=== PATIENT | female | born 1975 | race African-American/Black ===

== ENCOUNTER 2023-05-22 10:25 | Outpatient (AMB) | payer OTHER, SELFPAY ==
--- NOTE | 2023-05-22 10:26 | MHC.PC.OV ---
Vital Signs 05/22/23 10:28 Height 5 ft 4.96 in Weight 155 lb BMI 25.8 BP 114/62 Blood Pressure Location Lt brachial Position Sitting Pulse 77 Pulse Source Pulse Oximeter Pulse Oximetry (%) 100 Oxygen Delivery Method Room Air Intake Visit Reasons: NPV/ requesting phy Allergies No Known Allergies Allergy (Verified 05/22/23 10:42) Medication List - Last Reconciled 05/22/23 by CHARLOTTE Hernandes No Known Home Meds Dental Screening Dental Screen Date: 05/22/23 Did you have a dental visit in the last 12 months?: Yes Did you have a dental problem in the last 6 months where you did not have access to dental care?: No Was dental information given to patient?: Patient has dentist HPI HPI Comments History of Present Illness Details 48 year female new patient presents today for physical exam. Past medical history significant for migraine and hypercholesteremia. Patient signed release to obtain records from previous pcp. Denies chest pain, palpitations, shortness of breath or syncope. Pap smear: December 2022 Eye exam: Recommended. Colonoscopy: January 2023, patient reports it was normal, recommend 10 year follow-up Mammogram: January 2023, patient reports history of dense breast tissue states she needed additional imaging breast ultrasound on previous mammogram and everything came back negative. [facility] Medical History (Updated 05/22/23 @ 10:44 by CHARLOTTE Hernandes) Migraines Surgical History (Updated 05/22/23 @ 10:32 by RENE Hester) History of dilatation and curettage Family History (Updated 05/22/23 @ 10:45 by CHARLOTTE Hernandes) Mother Migraines Father No problems noted. Maternal Grandmother Breast cancer Social History (Updated 05/22/23 @ 10:45 by CHARLOTTE Hernandes) Housing: House Alcohol intake: never Patient Tobacco Use Status: Never used Tobacco e-Cigarette/Vaping Use: Never Used Current occupational status: employed Cognitive needs: No Hearing needs: No Vision needs: No Questionnaire PHQ-9 Over the last 2 weeks, how often have you been bothered by any of the following problems? 1. Little interest or pleasure in doing things: not at all 2. Feeling down, depressed, or hopeless: not at all 3. Trouble falling or staying asleep, or sleeping too much: not at all 4. Feeling tired or having little energy: not at all 5. Poor appetite or overeating: not at all 6. Feeling bad about yourself - or that you are a failure or have let yourself or your family down: not at all 7. Trouble concentrating on things, such as reading the newspaper or watching television: not at all 8. Moving or speaking so slowly that other people could have noticed. Or the opposite - being so fidgety or restless that you have been moving around a lot more than usual: not at all 9. Thoughts that you would be better off or of hurting yourself in some way: not at all Total score: 0 Depression Screening Interpretation: Negative 51618 - PHQ-9 Billing: Yes Source: Developed by Drs. Rachid Howell, Dionna Delgadillo, Ean Johnson and colleagues, with an educational shruthi from [employer]. Thrive Questionnaire I am a: Patient What is your living situation today?: I have a steady place to live Within the past 12 months, did the food you bought not last and you didn't have the money to get more?: Never true Within the past 12 months, did you worry whether your food would run out before you got money to buy more?: Never true Do you have trouble paying for medicines?: No Do you have trouble getting transportation to medical appointments?: No Do you have trouble paying your heating and electricity bill?: No Do you have trouble taking care of your child, family member or friend?: No Do you have trouble with day-to-day activities such as bathing, preparing meals, shopping, managing finances, etc.?: No Are you currently unemployed and looking for a job?: No Are you interested in more education?: No Please select the resources that you would like help with: None AUDIT C Alcohol Use Questionnaire (AUDIT-C) 1. How often do you have a drink containing alcohol?: Never Total Score: 0 YADIEL-7 AMB Questionnaire YADIEL-7 Feeling nervous, anxious, or on edge: 0 = Not at all Not being able to stop or control worryin = Not at all Worrying too much about different things: 0 = Not at all Trouble relaxin = Not at all Being so restless that it is hard to sit still: 0 = Not at all Becoming easily annoyed or irritable: 0 = Not at all Feeling afraid as if something awful might happen: 0 = Not at all Total YADIEL-7 score (0-4 normal; 5-9 mild; 10-14 moderate; 15-21 severe): 0 Source: Developed by Drs. Rachid Howell, Dionna Delgadillo, Ean Johnson and colleagues, with an educational shruthi from [employer]. YADIEL-7 Assessment Billing YADIEL-7 Assessment Tool: YADIEL-7 Assessment 47000 Physical exam (Primary Care) Vital Signs: Last Vital Signs Pulse 77 05/22/23 10:28 BP 114/62 05/22/23 10:28 Pulse Ox 100 05/22/23 10:28 Oxygen Delivery Method Room Air 05/22/23 10:28 BMI result Body Mass Index 25.8 Tobacco/Smoking Status: Tobacco use Status Patient Tobacco Use Status Never used Tobacco 05/22/23 10:45 e-Cigarette/Vaping Use Never Used 05/22/23 10:45 PHQ-9: PHQ-9 Score PHQ-9: Total score 0 05/22/23 10:39 Depression Screening Interpretation: Negative Assessment and Plan Assessment & Plan (1) Hypercholesteremia: Code(s): E78.00 - Pure hypercholesterolemia, unspecified Plan: Fasting lipid panel ordered. (2) Physical exam, annual: Code(s): Z00.00 - Encounter for general adult medical examination without abnormal findings Plan: Follow-up in 1 year or sooner if needed. Orders: Orders TSH reflex Free T4 Today Z13.29 - Encounter for screening for other suspected endocrine disorder Complete Blood Count Auto Diff Today Z13.0 - Encounter for screening for diseases of the blood and blood-forming organs and certain disorders involving the immune mechanism Comprehensive [place]. Panel Fast Today E78.00 - Pure hypercholesterolemia, unspecified Lipid Panel Today Z13.220 - Encounter for screening for lipoid disorders Vitamin D 25-OH Total Today Z13.21 - Encounter for screening for nutritional disorder Coding Level of Care Code New Pt Prev Care 40-64y(57591) Diagnoses Hypercholesteremia E78.00 Physical exam, annual Z00.00 Additional Codes YADIEL-7 Assessment Billing - YADIEL-7 Assessment Tool: YADIEL-7 Assessment 40630 ([id number])
[2023-05-22 10:28] VITALS: BP 114/62; PULSE 77; O2SAT 100; BMI 25.8
== END 2023-05-22 10:58 | disposition home or self-care (01) ==
PROVIDERS: PCP Internal Medicine; Visit Provider Nurse Practitioner Family
DX: E78.00 Pure hypercholesterolemia, unspecified (principal); Z00.00 Encounter for general adult medical examination without abnormal findings
CPT/HCPCS: 99386

== ENCOUNTER 2023-05-24 09:55 | Outpatient (REF) | payer OTHER, SELFPAY ==
[2023-05-24 10:11] LABS: MANUAL DIFF FLAG NO
[2023-05-24 10:19] LABS: Basophils Percent Auto 0.7 % (0-2); Eosinophils Absolute Auto 0.1 X10*3/uL (0.0-0.4); Eosinophils Percent Auto 1.2 % (0-4); Hemoglobin 14.1 g/dl (12.0-16.0); Imm Gran Abs Auto 0.02 X10*3/uL (0.00-0.03); Imm Gran Pct Auto 0.3 % (0.0-0.4); Lymphocytes Absolute Auto 1.4 X10*3/uL (1.2-4.9); Lymphocytes Percent Auto 24.3 % (20-40); Mean Corpuscular HGB Conc 33.6 g/dl (31.0-35.0); Mean Corpuscular Hemoglobin 29.4 pg (27.0-33.0); Mean Corpuscular Volume 87.5 fL (80.0-98.0); Mean Platelet Volume 12.3 fL (9.4-12.3); Monocytes Absolute Auto 0.4 X10*3/uL (0.1-1.2); Neutrophils Absolute Auto 3.9 x10*3/uL (2.0-8.3); Neutrophils Percent Auto 66.5 % (45-73); Platelet Count 152 X10*3/uL (160-400); Red Cell Distribution Width 12.8 % (11.0-16.0); White Blood Count 5.9 X10*3/uL (4.8-10.8)
[2023-05-24 10:56] LABS: Alanine Aminotransferase 7 U/L (0-31); Albumin Level 4.1 g/dL (3.5-5.0); Alkaline Phosphatase 44 U/L (39-117); Anion Gap 10 (12-20); Aspartate Amino Transferase 14 U/L (5-31); Bilirubin Total 0.4 mg/dL (0.0-1.0); Blood Urea Nitrogen 10 mg/dL (9-16); Calcium 9.2 mg/dL (8.4-10.2); Carbon Dioxide 26 mmol/L (22-29); Chloride 106 mmol/L (96-108); Cholesterol 263 mg/dL (<200); Estimated Glomerular Filt Rate > 60; Glucose Fasting 104 mg/dL (60-99); HDL Cholesterol 53 mg/dL (>40); LDL Cholesterol Calculated 199 mg/dL (<100); Potassium 4.2 mmol/L (3.3-5.1); Sodium 138 mmol/L (135-145); Total Protein 6.5 g/dL (6.5-8.0); Triglycerides 59 mg/dL (<150)
[2023-05-24 11:15] LABS: TSH reflex Free T4 1.19 uIU/mL (0.32-4.0); Vitamin D 25-OH Total 55.3 ng/mL (>30)
== END 2023-05-24 09:56 | disposition home or self-care (01) ==
LOC: HO.LAB 09:55
PROVIDERS: PCP Nurse Practitioner Family; Visit Provider Nurse Practitioner Family
DX: Z13.21 Encounter for screening for nutritional disorder (principal); Z13.0 Encounter for screening for diseases of the blood and blood-forming organs and certain disorders involving the immune mechanism; Z13.220 Encounter for screening for lipoid disorders; Z13.29 Encounter for screening for other suspected endocrine disorder; E78.00 Pure hypercholesterolemia, unspecified; I10 Essential (primary) hypertension
CPT/HCPCS: 36415; 80053; 80061; 82306; 84443; 85025

== ENCOUNTER 2023-05-31 09:19 | Outpatient (REF) | payer OTHER, SELFPAY ==
[2023-05-31 10:58] LABS: Estimated Average Glucose 100 mg/dL; Hemoglobin A1c % 5.1 % (<6.0)
[2023-05-31 11:06] LABS: Alanine Aminotransferase 9 U/L (0-31); Alkaline Phosphatase 37 U/L (39-117); Anion Gap 9 (12-20); Aspartate Amino Transferase 13 U/L (5-31); Bilirubin Total 0.5 mg/dL (0.0-1.0); Blood Urea Nitrogen 10 mg/dL (9-16); Calcium 8.6 mg/dL (8.4-10.2); Carbon Dioxide 27 mmol/L (22-29); Chloride 105 mmol/L (96-108); Estimated Glomerular Filt Rate > 60; Glucose Fasting 96 mg/dL (60-99); Potassium 3.7 mmol/L (3.3-5.1); Sodium 137 mmol/L (135-145); Total Protein 6.2 g/dL (6.5-8.0)
== END 2023-05-31 09:20 | disposition home or self-care (01) ==
LOC: HO.LAB 09:19
PROVIDERS: PCP Nurse Practitioner Family; Visit Provider Nurse Practitioner Family
DX: R73.01 Impaired fasting glucose (principal)
CPT/HCPCS: 36415; 80053; 83036

== ENCOUNTER 2023-08-24 10:19 | Outpatient (REF) | payer OTHER, SELFPAY ==
[2023-08-24 12:24] LABS: Cholesterol 265 mg/dL (<200); HDL Cholesterol 65 mg/dL (>40); LDL Cholesterol Calculated 188 mg/dL (<100); Triglycerides 60 mg/dL (<150)
== END 2023-08-24 10:20 | disposition home or self-care (01) ==
LOC: HO.LAB 10:19
PROVIDERS: PCP Nurse Practitioner Family; Visit Provider Nurse Practitioner Family
DX: E78.00 Pure hypercholesterolemia, unspecified (principal)
CPT/HCPCS: 36415; 80061

== ENCOUNTER 2024-05-10 08:28 | Outpatient (REF) | payer OTHER, SELFPAY ==
--- NOTE | ~2024-05-10 | MM_ITS ---
EXAMINATION: MM SCREENING DIGITAL BREAST TOMOSYNTHESIS, BILATERAL CLINICAL INFORMATION: Screening. Asymptomatic. COMPARISON: Mammography: Baseline. TECHNIQUE: Digital breast mammography with tomosynthesis is performed in both the craniocaudal and mediolateral oblique views along with computer-aided detection (CAD). FINDINGS: There are scattered areas of fibroglandular density (ACR BI-RADS breast composition Category b). There are no significant masses, abnormal calcifications, or other abnormalities. MM/MM tomosynthesis screening BI IMPRESSION: No mammographic evidence of malignancy. ASSESSMENT: BI-RADS BI-RADS 1 - Negative RECOMMENDATION: Routine annual mammography screening. 1 year F/U This examination should not preclude the clinical evaluation of a suspicious palpable abnormality. This patient's information was entered into a reminder system with a target due date for their next mammogram. Electronically signed by: Ирина Gardner DO 06/05/2024 09:47 AM EDT
== END 2024-05-10 08:29 | disposition home or self-care (01) ==
LOC: HO.MAMMO 08:28
PROVIDERS: Visit Provider Obstetrics & Gynecology
DX: Z12.31 Encounter for screening mammogram for malignant neoplasm of breast (principal)
CPT/HCPCS: 77063; 77067

== ENCOUNTER → 2024-05-10 08:30 | Outpatient (BNV) | payer OTHER, SELFPAY | PROVIDERS: Visit Provider Internal Medicine | DX: Z12.31 Encounter for screening mammogram for malignant neoplasm of breast (principal) | CPT/HCPCS: 77063; 77067 ==

== ENCOUNTER 2024-05-24 08:34 | Outpatient (REF) | payer OTHER, SELFPAY ==
[2024-05-24 09:45] LABS: MANUAL DIFF FLAG NO
[2024-05-24 10:22] LABS: Basophils Percent Auto 0.9 % (0-2); Eosinophils Absolute Auto 0.1 X10*3/uL (0.0-0.4); Eosinophils Percent Auto 2.5 % (0-4); Hematocrit 39.5 % (37.0-47.0); Hemoglobin 13.2 g/dl (12.0-16.0); Imm Gran Abs Auto 0.04 X10*3/uL (0.00-0.03); Imm Gran Pct Auto 0.9 % (0.0-0.4); Lymphocytes Absolute Auto 1.2 X10*3/uL (1.2-4.9); Lymphocytes Percent Auto 26.3 % (20-40); Mean Corpuscular HGB Conc 33.4 g/dl (31.0-35.0); Mean Corpuscular Hemoglobin 29.9 pg (27.0-33.0); Mean Corpuscular Volume 89.4 fL (80.0-98.0); Mean Platelet Volume 12.2 fL (9.4-12.3); Monocytes Absolute Auto 0.4 X10*3/uL (0.1-1.2); Monocytes Percent Auto 8.3 % (2-11); Neutrophils Absolute Auto 2.7 x10*3/uL (2.0-8.3); Neutrophils Percent Auto 61.1 % (45-73); Platelet Count 137 X10*3/uL (160-400); Red Blood Count 4.42 X10*6/uL (4.20-5.50); White Blood Count 4.5 X10*3/uL (4.8-10.8)
[2024-05-24 10:45] LABS: Appearance Urine Clear; Color Urine Yellow; Glucose Urine UA Negative (Negative); Leukocyte Esterase Urine Negative (Negative); Nitrite Urine Negative (Negative); PH 5.5 (5.0-9.0); Urine Blood Negative (Negative); Urine Ketones Negative (Negative); Urine Protein Negative (Neg-Trace)
[2024-05-24 11:34] LABS: Alanine Aminotransferase 10 U/L (0-31); Albumin Level 4.1 g/dL (3.5-5.0); Alkaline Phosphatase 35 U/L (39-117); Anion Gap 9 (12-20); Aspartate Amino Transferase 12 U/L (5-31); Bilirubin Total 0.3 mg/dL (0.0-1.0); Blood Urea Nitrogen 12 mg/dL (9-16); Calcium 8.8 mg/dL (8.4-10.2); Carbon Dioxide 22 mmol/L (22-29); Chloride 111 mmol/L (96-108); Cholesterol 259 mg/dL (<200); Estimated Glomerular Filt Rate > 60; Glucose Random 90 mg/dL (60-115); HDL Cholesterol 67 mg/dL (>40); LDL Cholesterol Calculated 184 mg/dL (<100); Potassium 4.1 mmol/L (3.3-5.1); Sodium 138 mmol/L (135-145); Total Protein 6.3 g/dL (6.5-8.0); Triglycerides 44 mg/dL (<150)
[2024-05-24 11:44] LABS: Folate 8.9 ng/mL (> or = 4.0); Vitamin B12 488 pg/mL (200-900)
[2024-05-24 11:50] LABS: Free T4 (Free Thyroxine) 0.83 ng/dL (0.71-1.85); TSH reflex Free T4 1.81 uIU/mL (0.32-4.0)
[2024-05-28 18:48] LABS: Vitamin D 25-OH, D2 <4 ng/mL; Vitamin D 25-OH, D3 36 ng/mL; Vitamin D 25-OH, Total 36 ng/mL (30-100)
== END 2024-05-24 08:35 | disposition home or self-care (01) ==
LOC: HO.LAB 08:34
DX: Z00.00 Encounter for general adult medical examination without abnormal findings (principal); R73.01 Impaired fasting glucose; E78.00 Pure hypercholesterolemia, unspecified; G43.909 Migraine, unspecified, not intractable, without status migrainosus; R35.89 Other polyuria; Z13.220 Encounter for screening for lipoid disorders
CPT/HCPCS: 36415; 80053; 80061; 81003; 82306; 82607; 82746; 84439; 84443; 85025; 96127; 99396

== ENCOUNTER 2024-05-24 08:34 | Outpatient (AMB) | payer OTHER, SELFPAY ==
[2024-05-24 08:36] VITALS: BP 106/60; PULSE 69; O2SAT 99; BMI 23.7
--- NOTE | 2024-05-24 08:36 | MHC.PC.OV ---
Vital Signs 05/24/24 08:36 Height 5 ft 4.96 in Weight 142 lb BMI 23.7 BP 106/60 Blood Pressure Location Lt brachial Position Sitting Pulse 69 Pulse Source Pulse Oximeter Pulse Oximetry (%) 99 Oxygen Delivery Method Room Air Intake Visit Reasons: annual exam/ [facility] Orthopedic Radiologic Technologist Required: No Allergies No Known Allergies Allergy (Verified 05/24/24 08:39) Medication List - Last Reconciled 05/24/24 by Francesca Conroy PA-C No Known Home Meds Tobacco use date assessed: 05/24/24 Dental Screening Dental Screen Date: 05/24/24 Did you have a dental visit in the last 12 months?: Yes Did you have a dental problem in the last 6 months where you did not have access to dental care?: No Was dental information given to patient?: Patient has dentist HPI annual exam/ breanna Caitlyn HPI Details 49-year-old female with past medical history migraines and hypercholesterolemia last seen by nurse practitioner coming in for annual exam.? Patient recently completed mammogram 05/10/2024 and currently awaiting read. Patient states she is feeling generally well however still having migraines. She was previously evaluated by Neurology who started her on sumatriptan 100 mg but she never ended up using. She has been doing low carb diet as well as other lifestyle changes and has seen good improvement in her migraines. She has a migraine twice monthly and typically associated with hormonal changes throughout the month. She follows with [facility] yearly and colonoscopy was completed 2 years ago in up-to-date. She also regularly follows with gynecology for Pap smears. [facility] Medical History (Updated 05/24/24 @ 09:59 by Francesca Conroy PA-C) Migraines Surgical History History of dilatation and curettage Family History Mother Migraines Father No problems noted. Maternal Grandmother Breast cancer Social History Housing: House Alcohol intake: never Patient Tobacco Use Status: Never used Tobacco e-Cigarette/Vaping Use: Never Used Current occupational status: employed Cognitive needs: No Hearing needs: No Vision needs: No Questionnaire PHQ-9 Over the last 2 weeks, how often have you been bothered by any of the following problems? 1. Little interest or pleasure in doing things: not at all 2. Feeling down, depressed, or hopeless: not at all 3. Trouble falling or staying asleep, or sleeping too much: several days 4. Feeling tired or having little energy: not at all 5. Poor appetite or overeating: not at all 6. Feeling bad about yourself - or that you are a failure or have let yourself or your family down: not at all 7. Trouble concentrating on things, such as reading the newspaper or watching television: not at all 8. Moving or speaking so slowly that other people could have noticed. Or the opposite - being so fidgety or restless that you have been moving around a lot more than usual: not at all 9. Thoughts that you would be better off or of hurting yourself in some way: not at all Total score: 1 Depression Screening Interpretation: Negative Depression Screening Done: Yes 80487 - PHQ-9 Billing: Yes Source: Developed by Drs. Rachid Howell, Dionna Delgadillo, Ean Johnson and colleagues, with an educational shruthi from [employer]. Thrive Questionnaire Date Thrive assessed: 05/17/24 I am a: Patient What is your living situation today?: I have a steady place to live Within the past 12 months, did the food you bought not last and you didn't have the money to get more?: Never true Within the past 12 months, did you worry whether your food would run out before you got money to buy more?: Never true Do you have trouble paying for medicines?: No Do you have trouble getting transportation to medical appointments?: No Do you have trouble paying your heating and electricity bill?: No Do you have trouble taking care of your child, family member or friend?: No Do you have trouble with day-to-day activities such as bathing, preparing meals, shopping, managing finances, etc.?: No Are you currently unemployed and looking for a job?: No Are you interested in more education?: No Please select the resources that you would like help with: None Currently or been in a relationship where the following occur: No concerns reported THRIVE Score: 0 AUDIT C Alcohol Use Questionnaire (AUDIT-C) 1. How often do you have a drink containing alcohol?: Monthly or less 2. How many drinks containing alcohol do you have on a typical day when you are drinking?: 1 or 2 3. How often do you have six or more drinks on one occasion?: Never Total Score: 1 YADIEL-7 AMB Questionnaire YADIEL-7 Date YADIEL - 7 assessed: 05/24/24 Feeling nervous, anxious, or on edge: 1 = Several days Not being able to stop or control worryin = Not at all Worrying too much about different things: 0 = Not at all Trouble relaxin = Not at all Being so restless that it is hard to sit still: 0 = Not at all Becoming easily annoyed or irritable: 0 = Not at all Feeling afraid as if something awful might happen: 0 = Not at all Total YADIEL-7 score (0-4 normal; 5-9 mild; 10-14 moderate; 15-21 severe): 1 Source: Developed by Drs. Rachid Howell, Dionna Delgadillo, Ean Johnson and colleagues, with an educational shruthi from [employer]. YADIEL-7 Assessment Billing YADIEL-7 Assessment Tool: YADIEL-7 Assessment 95203 Review of Systems Const Denies body aches, Denies fatigue, Denies fever(s), Denies frequent falls, Reports headache(s) and Denies weakness Eyes Reports no additional complaints and Denies change in vision ENT Denies dysphagia, Denies dizziness, Denies facial pain, Reports headache(s), Denies nasal congestion and Denies odynophagia Card Denies chest pain, Denies syncope, Denies irregular heart rhythm, Denies leg edema, Denies lightheadedness and Denies dyspnea Resp Denies cough and Denies dyspnea GI Denies constipation, Denies dysphagia, Denies dyspepsia, Denies diarrhea, Reports nausea (w/ migraine), Denies odynophagia and Reports vomiting (w/ migraines) Denies urinary frequency, Denies dysuria, Denies urinary hesitancy and Denies urinary urgency Musc Denies back pain and Denies myalgias Skin/Breast Reports system reviewed and no additional complaints, except as documented Neuro Denies dizziness, Denies syncope, Denies frequent falls, Reports headache(s) and Denies weakness Psych Reports no additional complaints Endo Denies fatigue Physical exam (Primary Care) Vital Signs: Oxygen Delivery Method Room Air 05/24/24 08:36 BMI result Body Mass Index 23.7 Tobacco/Smoking Status: Tobacco use Status Patient Tobacco Use Status Never used Tobacco 04/24/24 11:14 e-Cigarette/Vaping Use Never Used 04/24/24 11:14 Depression Screening Interpretation: Negative Thrive Assessment: Date of Thrive Assessment Date Thrive assessed 05/17/24 05/17/24 11:49 Currently or been in a relationship where the following occur: No concerns reported Const General: cooperative, healthy appearing, comfortable and no acute distress Orientation/consciousness: patient oriented x3 HENMT Head: Yes normocephalic Ears: hearing grossly normal bilaterally, external ears normal, TM's normal bilaterally and EAC's normal General nose exam: Normal external nose present Face and sinus: Yes normal facial exam and Yes sinuses nontender Mouth: Normal oral and palatal mucosa present and tongue normal Throat: Yes posterior oropharynx normal Eyes General: appearance normal, both eyes and all related structures Conjunctivae: conjunctivae normal Pupils: Equal, round and reactive pupils present EOM: EOMs intact bilaterally and No Nystagmus present Neck Neck: Yes normal visual inspection, Yes full ROM and Yes no lymphadenopathy Chest Chest palpation & inspection: normal inspection of the chest Resp Effort & Inspection: normal respiratory effort Auscultation: clear to auscultation bilaterally, no crackles, no rales, no rhonchi, no wheezes and breath sounds present Cardio Rate: regular rate Rhythm: regular rhythm Peripheral pulses: radial pulses present and dorsalis pedis present GI Inspection: Yes normal to inspection and No Abdominal wall edema Palpation (GI): Soft to palpation, not firm and nontender Auscultation: normal bowel sounds Rectal Exam - Female: deferred General: Yes no CVA tenderness Back/Spine/Pelvis Back: no CVA tenderness Skin General skin exam: no rashes or lesions noted Neuro General: patient oriented x3 Cranial nerves: Yes Equal, round and reactive pupils present, Yes Midline tongue present, Yes Ability to bilaterally elevate shoulders present and No Nystagmus present Gait exam (Neuro): Normal gait present Extrem General: Yes normal to inspection, Yes full ROM, No no pedal edema and No edema Psych Speech and movement: Normal speech and movement present Affect: normal affect Insight: Good insight present (Psych) Judgement: Good judgement present (Psych) Assessment and Plan Assessment & Plan (1) Elevated fasting glucose: Code(s): R73.01 - Impaired fasting glucose Plan: Updated blood work ordered. Decrease the amount of carbohydrates such as pasta, bread, rice, and potatoes and limit the amount of sweets. Although fruits are generally healthy they should be eaten in moderation as they are still high in sugar. (2) Hypercholesteremia: Code(s): E78.00 - Pure hypercholesterolemia, unspecified Plan: Cholesterol was mildly elevated on last lab work. Patient has been following a low carb diet and we will redraw labs. Avoid foods that are high in cholesterol such as red meat, fried foods, eggs and baked goods. (3) Migraines: Code(s): G43.909 - Migraine, unspecified, not intractable, without status migrainosus Plan: Patient was previously evaluated by Neurology and given sumatriptan but never tried due to side effect profile. She is willing to try sumatriptan again and prescription was sent today. Also send prescription for Zofran as she does have nausea associated with her migraines. (4) Annual physical exam: Code(s): Z00.00 - Encounter for general adult medical examination without abnormal findings Plan: Patient is up to date on all recommended routine screenings and vaccinations for her age. Ordered for updated blood work and will follow up at annual exam or sooner pending results. Plan This note was constructed using voice recognition software. While every effort has been made to ensure accuracy and monogram and letter paster, still areas may have been included sometimes these areas may affect the content or meeting of the given symptoms. Total time spent caring for the patient today was 30 minutes. This includes time spent before the visit reviewing the chart, time spent during the visit, and time spent after the visit and documentation. Orders: Orders Complete Blood Count Auto Diff Today Z00.00 - Encounter for general adult medical examination without abnormal findings TSH reflex Free T4 Today Z00.00 - Encounter for general adult medical examination without abnormal findings UA CC w/rflx Micro + Cult Today R35.89 - Other polyuria Vitamin B12 and Folate Today Z00.00 - Encounter for general adult medical examination without abnormal findings Vitamin D 25-OH (D2 and D3) Today Z00.00 - Encounter for general adult medical examination without abnormal findings Comprehensive Met. Panel Today Z00.00 - Encounter for general adult medical examination without abnormal findings Free T4 (Free Thyroxine) Today Z00.00 - Encounter for general adult medical examination without abnormal findings Lipid Panel Today Z00.00 - Encounter for general adult medical examination without abnormal findings Medications: New ondansetron 4 mg PO Q8H PRN 20 tabs 2RF nausea and vomiting sumatriptan succinate take 1 tab at onset of headache; if no relief may repeat 1 tab after at least 2 hrs; max = 4 tabs/24 hr PO 14 tabs 0RF Coding Level of Care Code Est Pt Prev Care 40-64y(96380) Diagnoses Elevated fasting glucose R73.01 Hypercholesteremia E78.00 Migraines G43.909 Annual physical exam Z00.00 Additional Codes YADIEL-7 Assessment Billing - YADIEL-7 Assessment Tool: YADIEL-7 Assessment [id number] ([id number])
== END 2024-05-24 09:09 | disposition home or self-care (01) ==
DX: Z00.00 Encounter for general adult medical examination without abnormal findings (principal); R73.01 Impaired fasting glucose; E78.00 Pure hypercholesterolemia, unspecified; G43.909 Migraine, unspecified, not intractable, without status migrainosus

== ENCOUNTER 2024-08-26 09:30 | Outpatient (AMB) | payer OTHER, SELFPAY ==
[2024-08-26 09:44] VITALS: BP 108/54; PULSE 96; O2SAT 99; BMI 25.2
--- NOTE | 2024-08-26 09:44 | A.OFFPC_ITS ---
Vital Signs 08/26/24 09:44 Height 5 ft 4.96 in Weight 151 lb 8 oz BMI 25.2 BP 108/54 L Blood Pressure Location Lt brachial Position Sitting Pulse 96 Pulse Source Pulse Oximeter Pulse Oximetry (%) 99 Oxygen Delivery Method Room Air Intake Visit Reasons: f/u migraines Physician Compensation Analyst Required: No Accompanied by: Self / Same As Patient Allergies No Known Allergies Allergy (Verified 08/26/24 09:45) Medication List - Last Reconciled 08/26/24 by Francesca Conroy PA-C ondansetron 4 mg PO Q8H PRN sumatriptan succinate 50 mg PO ONCE PRN Tobacco use date assessed: 05/24/24 Dental Screening Dental Screen Date: 05/24/24 HPI f/u migraines HPI Details 49-year-old female with past medical his tory of migraines and hypercholesterolemia last seen April 2024 coming in for follow up on migraines. Previously evaluated by Neurology who started her on sumatriptan 100 mg and noticed with dietary and lifestyle changes I migraines have been improving. At her last visit repeat blood work was ordered and patient was given sumatriptan to be used p.r.n. for migraines. Today she tells us her headaches have been about the same and we will typically happen around ovulation and right before her menstrual cycle. She will use sumatriptan as needed and we will occasionally need a 2nd dose depending on her migraines. She also uses CBD gummies and we will take naps to sleep off the migraine. She uses the sumatriptan 2-3 times per month in the last 3 months. She states in the last year her headaches have improved but not gone away completely and has been consistent. [facility] Medical History Migraines Surgical History History of dilatation and curettage Family History Mother Migraines Father No problems noted. Maternal Grandmother Breast cancer Social History Housing: House Alcohol intake: never Patient Tobacco Use Status: Never used Tobacco e-Cigarette/Vaping Use: Never Used service: No Current occupational status: employed Cognitive needs: No Hearing needs: No Vision needs: No Questionnaire Thrive Questionnaire Date Thrive assessed: 05/17/24 I am a: Patient What is your living situation today?: I have a steady place to live Within the past 12 months, did the food you bought not last and you didn't have the money to get more?: Never true Within the past 12 months, did you worry whether your food would run out before you got money to buy more?: Never true Do you have trouble paying for medicines?: No Do you have trouble getting transportation to medical appointments?: No Do you have trouble paying your heating and electricity bill?: No Do you have trouble taking care of your child, family member or friend?: No Do you have trouble with day-to-day activities such as bathing, preparing meals, shopping, managing finances, etc.?: No Are you currently unemployed and looking for a job?: No Are you interested in more education?: No Please select the resources that you would like help with: None Currently or been in a relationship where the following occur: No concerns reported THRIVE Score: 0 YADIEL-7 AMB Questionnaire YADIEL-7 Date YADIEL - 7 assessed: 05/24/24 Source: Developed by Drs. Rachid Howell, Dionna Delgadillo, Ean Johnson and colleagues, with an educational shruthi from [employer]. Review of Systems Const Denies body aches, Denies chills, Denies fever(s), Reports headache(s) and Denies poor appetite Eyes Reports no additional complaints and Reports blurry vision (With migraines) ENT Denies dizziness and Reports headache(s) Card Denies chest pain, Denies syncope, Denies edema, Denies irregular heart rhythm, Denies lightheadedness and Denies dyspnea Resp Denies cough and Denies dyspnea GI Denies abdominal pain, Denies constipation, Denies diarrhea, Denies nausea and Denies vomiting Reports no additional complaints Musc Reports no additional complaints and Denies abnormal gait Skin/Breast Reports system reviewed and no additional complaints, except as documented Neuro Denies abnormal gait, Denies dizziness, Denies syncope and Reports headache(s) Psych Reports no additional complaints Physical exam (Primary Care) Vital Signs: Last Vital Signs Pulse 96 08/26/24 09:44 BP 108/54 L 08/26/24 09:44 Pulse Ox 99 08/26/24 09:44 Oxygen Delivery Method Room Air 08/26/24 09:44 BMI result Body Mass Index 25.2 Tobacco/Smoking Status: Tobacco use Status Tobacco use date assessed 05/24/24 08/26/24 09:45 Patient Tobacco Use Status Never used Tobacco 08/26/24 09:45 e-Cigarette/Vaping Use Never Used 08/26/24 09:45 Thrive Assessment: Date of Thrive Assessment Date Thrive assessed 05/17/24 08/26/24 09:45 Currently or been in a relationship where the following occur: No concerns reported Const General: cooperative, healthy appearing, comfortable and no acute distress Orientation/consciousness: patient oriented x3 HENMT Head: Yes normocephalic Ears: hearing grossly normal bilaterally General nose exam: Normal external nose present Eyes General: appearance normal, both eyes and all related structures Conjunctivae: conjunctivae normal Neck Neck: Yes full ROM and Yes no lymphadenopathy Resp Effort & Inspection: normal respiratory effort Auscultation: clear to auscultation bilaterally, no crackles, no rales, no rhonchi and no wheezes Cardio Rate: regular rate Rhythm: regular rhythm Skin General skin exam: no rashes or lesions noted Neuro General: patient oriented x3 Gait exam (Neuro): Normal gait present Extrem General: Yes normal to inspection, Yes full ROM and No edema Psych Affect: normal affect Attitude: cooperative Insight: Good insight present (Psych) Judgement: Good judgement present (Psych) Coding Level of Care Code Est Pt Level 4 (30097) Diagnoses Migraines G43.909 Elevated fasting glucose R73.01 Hypercholesteremia E78.00 Assessment & Plan Assessment & Plan (1) Migraines: Code(s): G43.909 - Migraine, unspecified, not intractable, without status migrainosus Category: Medical Plan: Patient states she has been using the sumatriptan 2-3 times per month and has been managing migraines with the sumatriptan, CBD and napping as needed. She is declining maintenance medication at this time and states her headaches are manageable but would like further evaluation by Neurology. Patient was seen in already by a neurologist and did not finish workup. Referral placed to Neurology today. (2) Elevated fasting glucose: Code(s): R73.01 - Impaired fasting glucose Category: Medical Plan: Decrease the amount of carbohydrates such as pasta, bread, rice, and potatoes and limit the amount of sweets. Although fruits are generally healthy they should be eaten in moderation as they are still high in sugar. (3) Hypercholesteremia: Code(s): E78.00 - Pure hypercholesterolemia, unspecified Category: Medical Plan: Avoid foods that are high in cholesterol such as red meat, fried foods, eggs and baked goods. Triglyceride goal of less than 150 and LDL goal of less than 130. Cholesterol remains elevated on last blood work discussed with patient understands the risk of elevated cholesterol long periods of time. Declining medication at this time and we will continue to work on lifestyle and dietary modification. Plan This note was constructed using voice recognition software. While every effort has been made to ensure accuracy and retail pricing coordinator, still areas may have been included sometimes these areas may affect the content or meeting of the given symptoms. Total time spent caring for the patient today was 30 minutes. This includes time spent before the visit reviewing the chart, time spent during the visit, and time spent after the visit and documentation. Orders: Orders Hemoglobin A1c Today R73.01 - Impaired fasting glucose Lipid Panel Today E78.00 - Pure hypercholesterolemia, unspecified Referrals Neurology Referral G43.909 - Migraine, unspecified, not intractable, without status migrainosus Medications: Refilled sumatriptan succinate 50 mg PO ONCE PRN 20 tabs 2RF migraine headache
== END 2024-08-26 10:09 | disposition home or self-care (01) ==
DX: G43.909 Migraine, unspecified, not intractable, without status migrainosus (principal); R73.01 Impaired fasting glucose; E78.00 Pure hypercholesterolemia, unspecified

== ENCOUNTER 2024-11-19 10:44 | Outpatient (AMB) | payer OTHER, SELFPAY ==
--- NOTE | 2024-11-19 10:47 | MHC.PC.OV ---
Vital Signs 11/19/24 10:48 Height 5 ft 4.96 in Weight 146 lb 8 oz BMI 24.4 BP 120/70 Blood Pressure Location Lt brachial Position Sitting Pulse 72 Pulse Source Pulse Oximeter Temp 97.1 F Temp Source Temporal Artery Scan Pulse Oximetry (%) 98 Oxygen Delivery Method Room Air Intake Visit Reasons: (R) knee pain and swelling Intake Note: Patient is here to follow up on Right knee pain and swelling. Residential Carpenter Required: No Edge Bander Hand: Not Required per policy Accompanied by: Self / Same As Patient Allergies No Known Allergies Allergy (Verified 11/19/24 10:56) Medication List - Last Reconciled 11/19/24 by Francesca Conroy PA-C ondansetron 4 mg PO Q8H PRN sumatriptan succinate 50 mg PO ONCE PRN Tobacco use date assessed: 11/19/24 Dental Screening Dental Screen Date: 11/19/24 Did you have a dental visit in the last 12 months?: Yes Did you have a dental problem in the last 6 months where you did not have access to dental care?: No Was dental information given to patient?: Patient has dentist HPI (R) knee pain and swelling HPI Details 49-year-old female with past medical history of migraines and hypercholesterolemia last seen 07/2024 coming in for acute problem. Presenting with right knee pain with swelling and clicking sensation. The issue began the day after a yoga class, without any significant incident during the session itself. The patient described a dull pulling sensation in the right knee, impacting her ability to fully flex it. Mild swelling and clicking sounds were noted without any sharp pain but accompanied by a sense of tightness. This condition affects her ability to perform her occupational duties, requiring some cancellations of appointments. No history of falls, unusual activities, or sleeping positions were noted around the onset period. [facility] Medical History Migraines Surgical History History of dilatation and curettage Family History Mother Migraines Father No problems noted. Maternal Grandmother Breast cancer Social History Housing: House Alcohol intake: never Patient Tobacco Use Status: Never used Tobacco e-Cigarette/Vaping Use: Never Used Second Hand Smoke Exposure: No service: No Current occupational status: employed Cognitive needs: No Hearing needs: No Vision needs: No Questionnaire PHQ-9 Over the last 2 weeks, how often have you been bothered by any of the following problems? 1. Little interest or pleasure in doing things: not at all 2. Feeling down, depressed, or hopeless: not at all 3. Trouble falling or staying asleep, or sleeping too much: not at all 4. Feeling tired or having little energy: not at all 5. Poor appetite or overeating: not at all 6. Feeling bad about yourself - or that you are a failure or have let yourself or your family down: not at all 7. Trouble concentrating on things, such as reading the newspaper or watching television: not at all 8. Moving or speaking so slowly that other people could have noticed. Or the opposite - being so fidgety or restless that you have been moving around a lot more than usual: not at all 9. Thoughts that you would be better off or of hurting yourself in some way: not at all Total score: 0 Depression Screening Interpretation: Negative Depression Screening Done: Yes Source: Developed by Drs. Rachid Howell, Dionna Delgadillo, Ean Johnson and colleagues, with an educational shruthi from [employer]. Thrive Questionnaire Date Thrive assessed: 11/19/24 I am a: Patient What is your living situation today?: I have a steady place to live Within the past 12 months, did the food you bought not last and you didn't have the money to get more?: Never true Within the past 12 months, did you worry whether your food would run out before you got money to buy more?: Never true Do you have trouble paying for medicines?: No Do you have trouble getting transportation to medical appointments?: No Do you have trouble paying your heating and electricity bill?: No Do you have trouble taking care of your child, family member or friend?: No Do you have trouble with day-to-day activities such as bathing, preparing meals, shopping, managing finances, etc.?: No Are you currently unemployed and looking for a job?: No Are you interested in more education?: No Please select the resources that you would like help with: None Currently or been in a relationship where the following occur: No concerns reported THRIVE Score: 0 AUDIT C Alcohol Use Questionnaire (AUDIT-C) 1. How often do you have a drink containing alcohol?: Monthly or less 2. How many drinks containing alcohol do you have on a typical day when you are drinking?: 1 or 2 3. How often do you have six or more drinks on one occasion?: Never Total Score: 1 YADIEL-7 AMB Questionnaire YADIEL-7 Date YADIEL - 7 assessed: 11/19/24 Feeling nervous, anxious, or on edge: 0 = Not at all Not being able to stop or control worryin = Not at all Worrying too much about different things: 0 = Not at all Trouble relaxin = Not at all Being so restless that it is hard to sit still: 0 = Not at all Becoming easily annoyed or irritable: 0 = Not at all Feeling afraid as if something awful might happen: 0 = Not at all Total YADIEL-7 score (0-4 normal; 5-9 mild; 10-14 moderate; 15-21 severe): 0 Source: Developed by Drs. Rachid Howell, Dionna Delgadillo, Ean Johnson and colleagues, with an educational shruthi from [employer]. Review of Systems Const Denies body aches, Denies chills and Denies fever(s) Eyes Reports no additional complaints Card Denies chest pain and Denies dyspnea Resp Denies dyspnea GI Reports no additional complaints Musc Reports as per HPI and Reports abnormal gait Skin/Breast Reports system reviewed and no additional complaints, except as documented Neuro Reports abnormal gait Psych Reports no additional complaints Physical exam (Primary Care) Vital Signs: Last Vital Signs Temp 97.1 F 11/19/24 10:48 Pulse 72 11/19/24 10:48 BP 120/70 11/19/24 10:48 Pulse Ox 98 11/19/24 10:48 Oxygen Delivery Method Room Air 11/19/24 10:48 BMI result Body Mass Index 24.4 Tobacco/Smoking Status: Tobacco use Status Tobacco use date assessed 11/19/24 11/19/24 10:53 Patient Tobacco Use Status Never used Tobacco 11/19/24 10:53 e-Cigarette/Vaping Use Never Used 11/19/24 10:53 PHQ-9: PHQ-9 Score PHQ-9: Total score 0 11/19/24 10:53 Depression Screening Interpretation: Negative Thrive Assessment: Date of Thrive Assessment Date Thrive assessed 11/19/24 11/19/24 10:53 Currently or been in a relationship where the following occur: No concerns reported Const General: cooperative, healthy appearing, comfortable and no acute distress Orientation/consciousness: patient oriented x3 HENMT Head: Yes normocephalic Ears: hearing grossly normal bilaterally General nose exam: Normal external nose present Eyes General: appearance normal, both eyes and all related structures Conjunctivae: conjunctivae normal Neck Neck: Yes full ROM and Yes no lymphadenopathy Resp Effort & Inspection: normal respiratory effort Cardio Rate: regular rate Rhythm: regular rhythm Skin General skin exam: no rashes or lesions noted Neuro General: patient oriented x3 Gait exam (Neuro): Normal gait present Extrem Other: Intact strength and sensation in bilateral lower extremities. No crepitus in bilateral knees. No tenderness to palpation over entirety of right knee on exam General: Yes normal to inspection, Yes full ROM and No edema Psych Affect: normal affect Attitude: cooperative Insight: Good insight present (Psych) Judgement: Good judgement present (Psych) Coding Level of Care Code Est Pt Level 3 (13730) Diagnoses Right knee pain M25.561 Assessment & Plan Assessment & Plan (1) Right knee pain: Code(s): M25.561 - Pain in right knee Category: Medical Plan: The management plan for the patient's right knee symptoms focuses on conservative treatment. The decision was made based on the recent symptom onset and clinical examination. A physical therapy referral was provided to aid in knee flexibility and rehabilitation, using modalities like heat, ice, and topical anti-inflammatory gels such as Voltaren and Biofreeze to reduce inflammation and symptomatology. An X-ray was considered but deferred unless symptoms do not improve, as initial suspicion leaned more toward muscular or ligament involvement rather than bone abnormalities. The patient was advised on performing specific exercises and techniques using massage rollers to assist with symptom management, ensuring to follow up on any changes in the situation or if worsening occurs. Plan This note was constructed using voice recognition software. While every effort has been made to ensure accuracy and green energy marketing analyst, still areas may have been included sometimes these areas may affect the content or meeting of the given symptoms. Total time spent caring for the patient today was 20 minutes. This includes time spent before the visit reviewing the chart, time spent during the visit, and time spent after the visit and documentation. Patient was informed and verbally consented to the use of an ambient scribe for clinic note documentation during this visit. Orders: Orders PT Evaluation and Treatment Today M25.561 - Pain in right knee Medications: New diclofenac sodium 1% (Voltaren Arthritis Pain) apply to single elbow, wrist or hand; for hand includes palm/fingers/back of hand 2 grams topical QID 100 grams 0RF
[2024-11-19 10:48] VITALS: BP 120/70; PULSE 72; TEMP 36.2; O2SAT 98; BMI 24.4
== END 2024-11-19 11:12 | disposition home or self-care (01) ==
LOC: HO.HMCH 10:45
DX: M25.561 Pain in right knee (principal)

== ENCOUNTER → 2024-11-19 10:44 | Outpatient (BNVA) | payer OTHER, SELFPAY | DX: M25.561 Pain in right knee (principal) | CPT/HCPCS: 99212 ==

== ENCOUNTER 2025-03-14 08:02 | Outpatient (RCR) | payer OTHER, SELFPAY ==
--- NOTE | 2025-02-05 10:00 | MHC.PT.EP ---
[facility] [place] Office [place] Office [place] Office [address] Lakeshia Silveira [address] [phone] F: [phone] F: [phone] F: [phone] F: [phone] Physical Therapy Plan of Care Date of Evaluation: 02/05/25 Date of Surgery: Diagnosis: PAIN IN RIGHT KNEE Assessment: 49 YO FEMALE REF TO PT WITH H/O PROGRESSIVE Rt KNEE PAIN SINCE NOVEMBER 16, 2024-> SHE DENIES TRAUMA. 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 OBJECTIVELY, SHE HAS (+) LUMBOPELVIC ASYMM CREATING A LLI, LATERAL PATELLAR TIGHTNESS AND INFRAPAT FAT PAD IRRIT, DECR Rt HS FLEXIB, STRENGTH DEFICITS IN POSTERIOR CHAIN, AND DECR FUNCTIONAL SQUAT MECH. SHE HAS DECR FAROOQ TO BENDING-> ADLs REQ Rt KNEE FLEX IN CLOSED OR OPEN CHAIN ACTIVITIES. WE DISCUSSED PT POC AND THE Pt AGREES W PROCEEDING IN PT. Frequency and Duration: The patient will be seen 2 x WK x 4 WKS Short Term Goals: DECR Rt KNEE PAIN TO 2-3/10 AT MAX INITIATE HEP-> LUMBOPELVOC/ CORE STABILIZATION IMPROVE GLUTEAL STRENGTH Flag Football Coach Goals: Pt INDEP HEP AND SELF SX MGMT = AND IMPROVED PROX LEs STRENGTH-> WFL SYMMETRY IN LUMBOPELVIC REGION WNL FUNCTIONAL SQUAT AND SIMUL TASKS W APPROP Treatment Plan: Modalities to reduce pain, spasms and effusion. Manual therapy to restore motion and function. Therapeutic exercise to improve strength and flexibility. Neuromuscular re-education for posture and balance. Therapeutic activities to return to functional activities of daily living. Electronically signed by: DAVIS LAU,PT Please sign and return to therapist. Thank you for your referral.
--- NOTE | 2025-03-14 09:16 | MHC.PT.DC ---
[facility] [place] Office [place] Office [place] Office [address] Lakeshia Silveira [address] [phone] F: [phone] F: [phone] F: [phone] F: [phone] Physical Therapy Discharge Report Diagnosis: PAIN IN RIGHT KNEE Date of Surgery: Date of Evaluation: 02/05/25 Date of Discharge: 03/14/25 Treatments to Date: 6 Cancellations to Date: 1 No Shows to Date: Discharge Status: Achieved Goals Improved Function Independent with HEP Discharge Summary: SOLOMON HAS PROGRESSED NICELY IN PT-> ULTIMATELY, RESOLVED Rt KNEE PAIN, IMPROVED STRENGTH AND SYMMETRY IN LUMBOPELVIC REGION, SHE IS INDEP W HEP, SHE HAS MET HER PT GOALS AND IS D/C AT THIS TIME. Electronically signed by: DAVIS LAU,PT Please sign and return to therapist. Thank you for your referral.
== END 2025-03-14 09:15 | disposition home or self-care (01) ==
LOC: HO.PT 08:02
DX: M25.561 Pain in right knee (principal)
CPT/HCPCS: 97110; 97140; 97162

== ENCOUNTER 2025-05-14 08:02 | Outpatient (AMB) | payer OTHER, SELFPAY ==
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
[2025-05-14 08:09] VITALS: BP 98/60; PULSE 73; O2SAT 99
== END 2025-05-14 09:26 | disposition home or self-care (01) ==
LOC: HO.HSMS 08:03
PROVIDERS: Visit Provider Nurse Practitioner Family
DX: G43.109 Migraine with aura, not intractable, without status migrainosus (principal); G43.829 Menstrual migraine, not intractable, without status migrainosus
CPT/HCPCS: 99204

== ENCOUNTER → 2025-05-14 08:02 | Outpatient (BNVA) | payer OTHER, SELFPAY | PROVIDERS: Visit Provider Nurse Practitioner Family | DX: G43.109 Migraine with aura, not intractable, without status migrainosus (principal); G43.829 Menstrual migraine, not intractable, without status migrainosus | CPT/HCPCS: 99202 ==

== ENCOUNTER 2025-05-19 08:03 | Outpatient (REF) | payer OTHER, SELFPAY | END 2025-05-19 08:04 | disposition home or self-care (01) | LOC: HO.MAMMO 08:03 | DX: Z12.31 Encounter for screening mammogram for malignant neoplasm of breast (principal) | CPT/HCPCS: 77063; 77067 ==

== ENCOUNTER → 2025-05-19 08:15 | Outpatient (BNV) | payer OTHER, SELFPAY | PROVIDERS: Visit Provider Internal Medicine | DX: Z12.31 Encounter for screening mammogram for malignant neoplasm of breast (principal) | CPT/HCPCS: 77063; 77067 ==

== ENCOUNTER 2025-05-26 08:32 | Outpatient (AMB) | payer OTHER, SELFPAY ==
[2025-05-26 08:37] VITALS: BP 100/78; PULSE 74; O2SAT 98; BMI 23.8
--- NOTE | 2025-05-26 08:37 | MHC.PC.OV ---
Vital Signs 05/26/25 08:37 Height 5 ft 4.96 in Weight 143 lb 2 oz BMI 23.8 BP 100/78 Blood Pressure Location Lt brachial Position Sitting Pulse 74 Pulse Source Pulse Oximeter Pulse Oximetry (%) 98 Oxygen Delivery Method Room Air Intake Visit Reasons: Annual exam [employer] Supervisor Required: No Accompanied by: Self / Same As Patient Allergies No Known Allergies Allergy (Verified 05/26/25 08:50) Medication List - Last Reconciled 05/26/25 by Francesca Conroy PA-C diclofenac sodium 1% (Voltaren Arthritis Pain) 2 grams topical QID naratriptan take 1/2 - 1 tab at onset of headache; if no relief may repeat 1 tab after at least 4 hrs; max = 2 tabs/24 hrs orally PRN; 30 days ubrogepant (Ubrelvy) 50 - 100 mg (0.5 - 1 x 100 mg) PO ONCE PRN 30 days Tobacco use date assessed: 05/26/25 Dental Screening Dental Screen Date: 05/26/25 Did you have a dental visit in the last 12 months?: Yes Did you have a dental problem in the last 6 months where you did not have access to dental care?: No Was dental information given to patient?: Patient has dentist HPI Annual exam HPI Details 49-year-old female with past medical history of migraines and hypercholesterolemia last seen 10/2024 coming in for annual exam. In review of the notes, patient was seen by Neurology 05/18/2025 for migraines started on naratriptan and Ubrelvy. Presenting for an annual wellness visit. The patient reports ongoing migraines and has been prescribed naratriptan, which she feels is not effective. She is also in the process of obtaining a prescription for ubrelvy and is seeing an inbound ingredient logistics specialist for management. The patient has experienced knee pain in the past, which improved with physical therapy. She reports occasional pinchiness and swelling but notes it has not progressed significantly. The patient reports increased anxiety, which she attributes to menopause and stress from personal life changes, including a recent divorce and new partnership. 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 [place] [facility] [place]: 01/2023 repeat in 10 years [facility] Medical History Migraines Surgical History History of dilatation and curettage Family History Mother Migraines Father No problems noted. Maternal Grandmother Breast cancer Social History Housing: House Alcohol intake: never Patient Tobacco Use Status: Never used Tobacco e-Cigarette/Vaping Use: Never Used Second Hand Smoke Exposure: No service: No Current occupational status: employed Cognitive needs: No Hearing needs: No Vision needs: No Questionnaire PHQ-9 Over the last 2 weeks, how often have you been bothered by any of the following problems? 1. Little interest or pleasure in doing things: not at all 2. Feeling down, depressed, or hopeless: not at all 3. Trouble falling or staying asleep, or sleeping too much: not at all 4. Feeling tired or having little energy: not at all 5. Poor appetite or overeating: not at all 6. Feeling bad about yourself - or that you are a failure or have let yourself or your family down: not at all 7. Trouble concentrating on things, such as reading the newspaper or watching television: not at all 8. Moving or speaking so slowly that other people could have noticed. Or the opposite - being so fidgety or restless that you have been moving around a lot more than usual: not at all 9. Thoughts that you would be better off or of hurting yourself in some way: not at all Total score: 0 Depression Screening Interpretation: Negative Depression Screening Done: Yes Source: Developed by Drs. Rachid Howell, Dionna Delgadillo, Ean Johnson and colleagues, with an educational shruthi from [employer]. Thrive Questionnaire Date Thrive assessed: 05/26/25 I am a: Patient What is your living situation today?: I have a steady place to live Within the past 12 months, did the food you bought not last and you didn't have the money to get more?: Never true Within the past 12 months, did you worry whether your food would run out before you got money to buy more?: Never true Do you have trouble paying for medicines?: No Do you have trouble getting transportation to medical appointments?: No Do you have trouble paying your heating and electricity bill?: No Do you have trouble taking care of your child, family member or friend?: No Do you have trouble with day-to-day activities such as bathing, preparing meals, shopping, managing finances, etc.?: No Are you currently unemployed and looking for a job?: No Are you interested in more education?: No Please select the resources that you would like help with: None Currently or been in a relationship where the following occur: No concerns reported THRIVE Score: 0 AUDIT C Alcohol Use Questionnaire (AUDIT-C) 1. How often do you have a drink containing alcohol?: Never 3. How often do you have six or more drinks on one occasion?: Never Total Score: 0 YADIEL-7 AMB Questionnaire YADIEL-7 Date YADIEL - 7 assessed: 11/19/24 Feeling nervous, anxious, or on edge: 0 = Not at all Not being able to stop or control worryin = Not at all Worrying too much about different things: 0 = Not at all Trouble relaxin = Not at all Being so restless that it is hard to sit still: 0 = Not at all Becoming easily annoyed or irritable: 0 = Not at all Feeling afraid as if something awful might happen: 0 = Not at all Total YADIEL-7 score (0-4 normal; 5-9 mild; 10-14 moderate; 15-21 severe): 0 Source: Developed by Drs. Rachid Howell, Dionna Delgadillo, Ean Johnson and colleagues, with an educational shruthi from [employer]. Review of Systems Const Denies body aches, Denies fatigue, Denies fever(s), Denies frequent falls, Denies headache(s) and Denies weakness Eyes Reports no additional complaints and Denies change in vision ENT Denies dysphagia, Denies dizziness, Denies facial pain, Denies headache(s) and Denies odynophagia Card Denies chest pain, Denies syncope, Denies irregular heart rhythm, Denies leg edema, Denies lightheadedness and Denies dyspnea Resp Denies dyspnea GI Denies abdominal pain, Denies constipation, Denies dysphagia, Denies dyspepsia, Denies diarrhea, Denies nausea, Denies odynophagia and Denies vomiting Denies urinary frequency, Denies dysuria, Denies urinary hesitancy and Denies urinary urgency Musc Denies back pain and Denies myalgias Skin/Breast Reports system reviewed and no additional complaints, except as documented Neuro Denies dizziness, Denies syncope, Denies frequent falls, Denies headache(s) and Denies weakness Psych Reports no additional complaints Endo Denies fatigue Physical exam (Primary Care) Vital Signs: Last Vital Signs Pulse 74 05/26/25 08:37 BP 100/78 05/26/25 08:37 Pulse Ox 98 05/26/25 08:37 Oxygen Delivery Method Room Air 05/26/25 08:37 BMI result Body Mass Index 23.8 Tobacco/Smoking Status: Tobacco use Status Tobacco use date assessed 05/26/25 05/26/25 08:38 Patient Tobacco Use Status Never used Tobacco 05/26/25 08:38 e-Cigarette/Vaping Use Never Used 05/26/25 08:38 PHQ-9: PHQ-9 Score PHQ-9: Total score 0 05/26/25 08:51 Depression Screening Interpretation: Negative Thrive Assessment: Date of Thrive Assessment Date Thrive assessed 05/26/25 05/26/25 08:38 Currently or been in a relationship where the following occur: No concerns reported Const General: cooperative, healthy appearing, comfortable and no acute distress Orientation/consciousness: patient oriented x3 HENMT Head: Yes normocephalic Ears: hearing grossly normal bilaterally, external ears normal, TM's normal bilaterally and EAC's normal General nose exam: Normal external nose present Face and sinus: Yes normal facial exam and Yes sinuses nontender Mouth: Normal oral and palatal mucosa present and tongue normal Throat: Yes posterior oropharynx normal Eyes General: appearance normal, both eyes and all related structures Conjunctivae: conjunctivae normal Pupils: Equal, round and reactive pupils present EOM: EOMs intact bilaterally and No Nystagmus present Neck Neck: Yes normal visual inspection, Yes full ROM and Yes no lymphadenopathy Chest Chest palpation & inspection: normal inspection of the chest Resp Effort & Inspection: normal respiratory effort Auscultation: clear to auscultation bilaterally, no crackles, no rales, no rhonchi, no wheezes and breath sounds present Cardio Rate: regular rate Rhythm: regular rhythm Peripheral pulses: radial pulses present and dorsalis pedis present GI Inspection: Yes normal to inspection and No Abdominal wall edema Palpation (GI): Soft to palpation, not firm and nontender Auscultation: normal bowel sounds Rectal Exam - Female: deferred General: Yes no CVA tenderness Back/Spine/Pelvis Back: no CVA tenderness Skin General skin exam: no rashes or lesions noted Neuro General: patient oriented x3 Cranial nerves: Yes Equal, round and reactive pupils present, Yes Midline tongue present, Yes Ability to bilaterally elevate shoulders present and No Nystagmus present Gait exam (Neuro): Normal gait present Extrem General: Yes normal to inspection, Yes full ROM, No no pedal edema and No edema Psych Speech and movement: Normal speech and movement present Affect: normal affect Insight: Good insight present (Psych) Judgement: Good judgement present (Psych) Coding Level of Care Code Est Pt Prev Care 40-64y(26380) Diagnoses Annual physical exam Z00.00 Hypercholesteremia E78.00 Elevated fasting glucose R73.01 Migraine with aura, not intractable, without status migrainosus G43.109 Right knee pain M25.561 Assessment & Plan Assessment & Plan (1) Annual physical exam: Code(s): Z00.00 - Encounter for general adult medical examination without abnormal findings Category: Medical Plan: Patient is up to date on all recommended routine screenings and vaccinations for her age. Blood work was ordered today and she will plan to follow up yearly or sooner as needed or pending blood work results. (2) Hypercholesteremia: Code(s): E78.00 - Pure hypercholesterolemia, unspecified Category: Medical Plan: Avoid foods that are high in cholesterol such as red meat, fried foods, eggs and baked goods. Triglyceride goal of less than 150 and LDL goal of less than 130. Ordered for repeat blood work _ (3) Elevated fasting glucose: Code(s): R73.01 - Impaired fasting glucose Category: Medical Plan: Decrease the amount of carbohydrates such as pasta, bread, rice, and potatoes and limit the amount of sweets. Although fruits are generally healthy they should be eaten in moderation as they are still high in sugar. Ordered for repeat blood work (4) Migraine with aura, not intractable, without status migrainosus: Code(s): G43.109 - Migraine with aura, not intractable, without status migrainosus Category: Medical Plan: The patient is currently using naratriptan for migraine management but reports it is not effective. A prescription for ubrelvy is being processed, and she is also receiving acupuncture therapy. Continued monitoring of migraine frequency and effectiveness of new treatments is recommended. Continue to follow with neurology. (5) Right knee pain: Code(s): M25.561 - Pain in right knee Category: Medical Plan: The patient reports occasional knee pain with a history of improvement from physical therapy. She is advised to resume exercises to prevent progression of symptoms. Plan During the visit, we discussed the management of migraines, including the current use of naratriptan and the potential addition of ubrelvy. We also reviewed the importance of continuing physical therapy exercises for knee pain and addressed menopausal symptoms with supportive management strategies. Preventative care measures, including mammogram, colonoscopy, and blood work, were emphasized, and the need to verify tetanus vaccine status was noted. This note was constructed using voice recognition software. While every effort has been made to ensure accuracy and tube washer, still areas may have been included sometimes these areas may affect the content or meeting of the given symptoms. Total time spent caring for the patient today was 30 minutes. This includes time spent before the visit reviewing the chart, time spent during the visit, and time spent after the visit and documentation. Patient was informed and verbally consented to the use of an ambient scribe for clinic note documentation during this visit. Orders: Orders Vitamin D 25-OH Total Today Z13.21 - Encounter for screening for nutritional disorder Complete Blood Count Auto Diff Today G43.909 - Migraine, unspecified, not intractable, without status migrainosus, Z00.00 - Encounter for general adult medical examination without abnormal findings Lipid Panel Today E78.00 - Pure hypercholesterolemia, unspecified TSH reflex Free T4 Today Z13.29 - Encounter for screening for other suspected endocrine disorder Vitamin B12 and Folate Today Z13.21 - Encounter for screening for nutritional disorder Hemoglobin A1c Today E11.65 - Type 2 diabetes mellitus with hyperglycemia, R73.01 - Impaired fasting glucose Comprehensive Met. Panel Today G43.909 - Migraine, unspecified, not intractable, without status migrainosus, Z00.00 - Encounter for general adult medical examination without abnormal findings
== END 2025-05-26 09:03 | disposition home or self-care (01) ==
LOC: HO.HMCH 08:33
DX: Z00.00 Encounter for general adult medical examination without abnormal findings (principal); E78.00 Pure hypercholesterolemia, unspecified; R73.01 Impaired fasting glucose; G43.109 Migraine with aura, not intractable, without status migrainosus; M25.561 Pain in right knee

== ENCOUNTER 2025-05-26 08:32 | Outpatient (REF) | payer OTHER, SELFPAY ==
[2025-05-26 09:20] LABS: MANUAL DIFF FLAG NO
[2025-05-26 09:40] LABS: Hematocrit 40.1 % (37.0-47.0); Hemoglobin 13.2 g/dl (12.0-16.0); Imm Gran Abs Auto 0.01 X10*3/uL (0.00-0.03); Imm Gran Pct Auto 0.2 % (0.0-0.4); Lymphocytes Absolute Auto 1.2 X10*3/uL (1.2-4.9); Mean Corpuscular HGB Conc 32.9 g/dl (31.0-35.0); Mean Corpuscular Hemoglobin 29.9 pg (27.0-33.0); Mean Corpuscular Volume 90.9 fL (80.0-98.0); NRBC Abs Auto 0.000 X10*3/uL (0.0-0.012); NRBC Pct Auto 0.0 /100WBC (0.0-0.2); Platelet Count 153 X10*3/uL (160-400); Red Blood Count 4.41 X10*6/uL (4.20-5.50); White Blood Count 5.3 X10*3/uL (4.8-10.8)
[2025-05-26 09:47] LABS: Total Hemoglobin (HGBA1C) 3407.7121 umol/L
[2025-05-26 11:00] LABS: Alanine Aminotransferase 12 U/L (0-31); Albumin Level 4.2 g/dL (3.5-5.0); Alkaline Phosphatase 34 U/L (39-117); Anion Gap 8 (12-20); Aspartate Amino Transferase 16 U/L (5-31); Blood Urea Nitrogen 16 mg/dL (9-16); Calcium 8.6 mg/dL (8.4-10.2); Carbon Dioxide 27 mmol/L (22-29); Chloride 110 mmol/L (96-108); Cholesterol 266 mg/dL (<200); Estimated Glomerular Filt Rate > 60; HDL Cholesterol 71 mg/dL (>40); Potassium 4.1 mmol/L (3.3-5.1); Sodium 141 mmol/L (135-145); Total Protein 6.3 g/dL (6.5-8.0); Triglycerides 40 mg/dL (<150)
[2025-05-26 11:13] LABS: Folate 7.5 ng/mL (> or = 4.0); Vitamin B12 611 pg/mL (200-900)
== END 2025-05-26 08:33 | disposition home or self-care (01) ==
LOC: HO.LAB 08:32
DX: Z00.00 Encounter for general adult medical examination without abnormal findings (principal); Z13.21 Encounter for screening for nutritional disorder; Z13.29 Encounter for screening for other suspected endocrine disorder; G43.109 Migraine with aura, not intractable, without status migrainosus; E78.00 Pure hypercholesterolemia, unspecified; M25.561 Pain in right knee; E11.65 Type 2 diabetes mellitus with hyperglycemia; R73.01 Impaired fasting glucose; Z79.899 Other long term (current) drug therapy
CPT/HCPCS: 36415; 80053; 80061; 82306; 82607; 82746; 83036; 84443; 85025; 99396